=== PATIENT | female | born 1955 | race Caucasian/White ===

== ENCOUNTER 2020-01-05 14:13 | Emergency (ER) | payer MEDICARE ==
--- NOTE | 2020-01-05 17:01 | RAD ---
LUMBAR SPINE TWO VIEWS: History: Injury Comparison: None FINDINGS: There is compression deformity involving the L1 vertebrae with anterior wedging. Loss of anterior hei ght estimated in the 20% range. There is disc narrowing at T12-L1. This may be acute. Posterior align ment is preserved. The other lumbar vertebrae maintain height and alignment. The visualized thoracic vertebrae maintain normal height. IMPRESSION: Compression deformity involving the L1 vertebrae with anterior wedging. This is age indeterminate. Re commend clinical correlation. POS: JAYMIE
--- NOTE | 2020-01-05 17:08 | RAD ---
PORTABLE CHEST: Indications: Chest pain. Injury. FINDINGS: The lungs appear clear. Heart and mediastinum unremarkable. Review of the osseous structures reveal fractures of the posterolateral left 7th and 8th ribs. These are age indeterminate. Recommend clinical correlation. IMPRESSION: 1. Left rib fractures as described. 2. Lung damian are clear. POS: AGW
== END 2020-01-05 16:10 | disposition home or self-care (01) ==
LOC: MADERS 14:13
DX: S32.010A Wedge compression fracture of first lumbar vertebra, initial encounter for closed fracture (principal); S22.42XA Multiple fractures of ribs, left side, initial encounter for closed fracture; S00.83XA Contusion of other part of head, initial encounter; K21.9 Gastro-esophageal reflux disease without esophagitis; M19.90 Unspecified osteoarthritis, unspecified site; F32.9 Major depressive disorder, single episode, unspecified; I10 Essential (primary) hypertension; M81.0 Age-related osteoporosis without current pathological fracture; Z79.899 Other long term (current) drug therapy; Z79.891 Long term (current) use of opiate analgesic; V89.2XXA Person injured in unspecified motor-vehicle accident, traffic, initial encounter
CPT/HCPCS: 71045; 72100